=== PATIENT | female | born 1965 | race African-American/Black ===

== ENCOUNTER 2024-11-01 06:53 | Day surgery (SDC) | payer MEDICAID ==
[~2024-11-01] VITALS: Ht 157.5 cm; Wt 49.5 kg
[~2024-11-01 06:53] MED LIST: ALBU18HF12 IH; AMLO10TA55 PO; AZEL137S8 NASAL; BECL10.62 IH; CHOL200074 PO; FAMO20 PO; FERR325T23 PO; FEZO45TA PO; GABA-1554 PO; MONT-40 PO; NICO-803 TD; ROSU10TA72 PO; SODIUM CHLORIDE 0.9% 1,000 ML ONE; SOLI5TAB6 PO; TIOT4MIS2 IH
[2024-11-01] MEDS ORDERED: ALBUTEROL SULFATE 2.5 MG/0.5 ML NEB SOLUTION NEB ONE (06:54)
[2024-11-01] MEDS ORDERED: LIDOCAINE 4% 50 ML SOLUTION TP ONE (06:54)
[2024-11-01] MEDS ORDERED: BENZOCAINE 20% 50 MCG/SPRAY 57 GM TP ONE (06:54)
[2024-11-01] MEDS ORDERED: LIDOCAINE 2% 11 ML JELLY TP ONE (06:54)
[2024-11-01] MEDS: SODIUM CHLORIDE 0.9% 1,000 ML IV ONE (07:44)
[2024-11-01] MEDS ORDERED: SOLI5 PO (07:57)
[2024-11-01] MEDS ORDERED: MIDAZOLAM HCL 2 MG/2 ML VIAL ONE (08:08)
[2024-11-01] MEDS ORDERED: FentaNYL CITRATE PF 100 MCG/2 ML VIAL ONE (08:08)
[2024-11-01 09:36] VITALS: PULSE 58; RESP 18; O2SAT 100
[2024-11-01] MEDS ORDERED: MethylPREDNISolone SOD SUCC 125 MG/2 ML VIAL ONE (10:02)
[2024-11-01] MEDS: MethylPREDNISolone SOD SUCC 125 MG/2 ML VIAL IVP ONE (10:06)
== END 2024-11-01 13:45 | disposition left against medical advice (07) ==
LOC: SURGERY 06:53
PROVIDERS: ATTEND Internal Medicine Critical Care Medicine
DX: R05.3 Chronic cough (principal); R04.2 Hemoptysis; J38.4 Edema of larynx; I10 Essential (primary) hypertension; B37.0 Candidal stomatitis; E78.00 Pure hypercholesterolemia, unspecified; C85.90 Non-Hodgkin lymphoma, unspecified, unspecified site; J45.909 Unspecified asthma, uncomplicated; M19.90 Unspecified osteoarthritis, unspecified site; Z90.710 Acquired absence of both cervix and uterus; Z87.891 Personal history of nicotine dependence; Z98.890 Other specified postprocedural states
CPT/HCPCS: 31623; 87206; 87101; 87220; 87070; 31624; 71045; 87015; J3010; J2250; J2919; J7030; 88108; J7613; Z7610